=== PATIENT | male | born 1970 | race Caucasian/White ===

== ENCOUNTER 2019-05-07 22:52 | Emergency (ER) | payer SELFPAY ==
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
[2019-05-07 23:15] VITALS: BP 136/83
== END 2019-05-07 23:15 | disposition home or self-care (01) ==
LOC: ED 22:52
DX: T74.11XA Adult physical abuse, confirmed, initial encounter (principal)
CPT/HCPCS: 99281; 99282